=== PATIENT | female | born 1960 | race Caucasian/White ===

== ENCOUNTER 2017-08-02 16:00 | Outpatient (RCR) | payer BC, SELFPAY | END 2017-08-02 23:59 | LOC: PT.CARL 16:00 | PROVIDERS: Referring Provider Orthopaedic Surgery; Visit Provider Orthopaedic Surgery | DX: M75.100 Unspecified rotator cuff tear or rupture of unspecified shoulder, not specified as traumatic (principal) | CPT/HCPCS: 97010; 97014; 97033; 97110; 97140; 97162; G0283 ==

== ENCOUNTER 2017-08-26 16:30 | Outpatient (RCR) | payer BC, SELFPAY | END 2017-08-26 17:30 | disposition home or self-care (01) | LOC: PT 16:30 | PROVIDERS: Visit Provider Orthopaedic Surgery | DX: M75.00 Adhesive capsulitis of unspecified shoulder (principal) | CPT/HCPCS: 97010; 97014; 97016; 97033; 97110; 97140; 97164; G0283 ==

== ENCOUNTER 2018-08-07 08:30 | Outpatient (RCR) | payer BC, SELFPAY | END 2018-09-20 14:46 | disposition home or self-care (01) | LOC: PT.CARL 08:30 | PROVIDERS: Visit Provider Physician Assistant | DX: M46.1 Sacroiliitis, not elsewhere classified (principal) | CPT/HCPCS: 97010; 97012; 97014; 97033; 97110; 97140; 97163; G0283 ==

== ENCOUNTER 2019-01-04 08:30 | Outpatient (RCR) | payer BC, SELFPAY | END 2019-01-04 08:35 | disposition home or self-care (01) | LOC: PT 08:30 | PROVIDERS: Visit Provider Family Medicine Sports Medicine | DX: M70.60 Trochanteric bursitis, unspecified hip (principal) | CPT/HCPCS: 97010; 97014; 97033; 97035; 97110; 97140; 97163; G0283 ==

== ENCOUNTER 2019-09-13 07:00 | Outpatient (RCR) | payer BC, SELFPAY | END 2019-09-13 16:00 | disposition home or self-care (01) | LOC: PT.CARL 07:00 | PROVIDERS: Visit Provider Orthopaedic Surgery | DX: M75.100 Unspecified rotator cuff tear or rupture of unspecified shoulder, not specified as traumatic (principal) | CPT/HCPCS: 97010; 97014; 97110; 97140; 97163; 97164; G0283 ==

== ENCOUNTER 2020-03-10 07:00 | Outpatient (RCR) | payer BC, SELFPAY | END 2020-03-24 11:13 | disposition home or self-care (01) | LOC: PT.CARL 07:00 | PROVIDERS: Visit Provider Family Medicine | DX: M51.36 Other intervertebral disc degeneration, lumbar region (principal); M54.5 Low back pain; M54.10 Radiculopathy, site unspecified | CPT/HCPCS: 97110; 97140; 97163 ==

== ENCOUNTER → 2022-05-12 10:04 | Outpatient (CLI) | payer BC, SELFPAY ==
[2022-05-12 10:56] LABS: Basophils # 0.1 K/mm3 (0-0.2); Basophils % 0.7 % (0.1-2.0); Eosinophils # 0.6 K/mm3 (0.0-0.4); Eosinophils % 7.7 % (0.1-12.0); Hematocrit 42.2 % (37.0-47.0); Hemoglobin 12.6 g/dL (12.2-16.2); Lymphocytes # 3.2 K/mm3 (0.7-4.5); Lymphocytes % 38.2 % (10-50); Mean Corpuscular HGB Conc 29.8 g/dL (31.8-35.4); Mean Corpuscular Hemoglobin 27.7 pg (27.0-31.2); Mean Corpuscular Volume 93.2 fl (81-99); Mean Platelet Volume 7.2 fl (7.4-10.4); Monocytes # 0.5 K/mm3 (0.1-1.0); Monocytes % 6.5 % (1.7-9.3); Neutrophils # 3.9 K/mm3 (1.8-7.8); Neutrophils % 46.9 % (37.0-80.0); Platelet Count 424 K/mm3 (142-424); Red Blood Count 4.53 M/mm3 (4.20-5.40); Red Cell Distribution Width 13.5 % (11.5-17.5); White Blood Count 8.3 K/mm3 (4.8-10.8)
[2022-05-12 12:28] LABS: Anion Gap 14.6 mEq/L (5-15); Blood Urea Nitrogen 15 mg/dl (7-17); Calcium 9.3 mg/dl (8.4-10.2); Carbon Dioxide 31 mmol/L (22.0-30.0); Chloride 99 mmol/L (98-107); Estimated Glomerular Filt Rate 73 ml/min (>60); GFR (African American) 88 ML/MIN (>60); Glucose 98 mg/dl (74-100); Potassium 4.6 mmoL/L (3.5-5.1); Sodium 140 mmol/L (136-145)
== END ==
PROVIDERS: PCP Nurse Practitioner Family; Visit Provider Surgery
DX: L72.9 Follicular cyst of the skin and subcutaneous tissue, unspecified (principal)
CPT/HCPCS: 36415; 80048; 85025

== ENCOUNTER 2022-06-03 06:03 | Day surgery (SDC) | payer BC, SELFPAY ==
[2022-06-01 10:02] VITALS: BMI 32.3
[2022-06-03] VITALS (10 sets, daily range): BP systolic 99–145; BP diastolic 61–84; PULSE 71–88; RESP 15–18; TEMP 36.2–36.3; O2SAT 91–96
--- NOTE | 2022-06-03 08:00 | EXP.OP.NOTE ---
Date of procedure: 06/03/22 Pre-op Diagnosis:: Mid and right scalp cyst (x3) 2.5 cm cyst, 1.5 cm cyst, and a 1 cm cyst Post-op Diagnosis:: Same Procedure performed:: Excision of mid/right scalp cyst (x3) Scalp cysts range from 1 to 2.5 cm Surgeon:: Giovanny Hughes MD Anesthesia: LMA Estimated blood loss (mL): 15 Operative findings:: 1 cm right/mid apex scalp cyst 2.5 cm right crown scalp cyst 1.5 cm right posterior scalp cyst Operative note:: After informed consent was obtained the patient was taken to the operating room and placed in the supine position. General anesthesia with laryngeal mask airway was achieved. Her right scalp region was prepped and draped in a sterile fashion. After infiltration with local anesthetic an incision was made overlying the 1 cm right/mid apex scalp cyst. The underlying subcutaneous tissue was dissected with a combination of electrocautery and blunt dissection. The cystic lesion was removed and passed off for pathologic evaluation. The same procedure was completed for the 2.5 cm right crown scalp cyst and a 1.5 cm right posterior scalp cyst. The 2.5 cm right crown scalp cysts had capsular disruption and complete excision of all capsule could not be confirmed. Electrocautery was utilized to achieve hemostasis at all 3 sites. Pressure dressings were applied and the patient was transferred to recovery in stable condition. Condition: stable Disposition: PACU Specimens:: Scalp cysts (x3) Complications:: No immediate
--- NOTE | 2022-06-03 08:13 | P.PN_ITS ---
[facility] Medical History History of high platelet count Hyperlipidemia Hypertension Hypertension Overactive bladder Scalp cyst Skin cancer Sleep apnea Surgical History H/O tubal ligation H/O: hysterectomy History of colonoscopy History of lumbar fusion History of rotator cuff surgery History of surgical removal of ganglion cyst Family History Mother Family history of diabetes mellitus type II Mother Family history of hypertension Social History (Updated 06/03/22 @ 06:33 by Arina Sr RN) Smoking Status: Never smoker alcohol intake: never substance use type: denies use current occupational status: other Travel in the last 8 weeks: None do you feel safe at home: Yes victim of physical abuse: No victim of emotional abuse: No victim of sexual abuse: No would you like helpful sources: No [facility] Anesthesia Checklist Patient Identification Patient Identification: Arm Band and Family Structural Data Admitted From: Direct Admit Planned Operative Procedure/s: Excision neoplasm/lesion scalp X3 Consent for Planned Operative Procedure(s) Verified: Yes Verified Documents: Surgical Consent and History and Physical NPO Status Verified Time NPO: 00:00 Additional verifications Patient : No Anesthesia Reactions: No Hx Blood Transfusions: No Blood Transfusion Reaction: No Cephalosporin Allergy: No Previous Colonoscopy: Yes Airway Assessment C-Spine Mobility Assessed: Yes TMJ Mobility Assessed: Yes Dentition: Good Dentition Neurological Assessment Level of Consciousness: Awake, Alert, Appropriate and Follows Commands Hx Seizures: No Numbness or tingling in extremities: No Anesthesia Plan Anesthesia Risk discussed: Yes ASA Class: II Anesthesia Type: General
--- NOTE | 2022-06-03 08:15 | EXP.ANES.I ---
[facility] Anesthesia Record Part I Anesthesia Record I Intake, IV Amount: 100 Estimated blood loss (mL): 2 Urine output (mL): 0 Blood Pressure: 142/82 SaO2: 95 Pulse Rate: 88 Respiratory Rate: 18 Temperature: 97.1 F Patient is:: Drowsy and Stable Stable to PACU at:: 08:05
--- NOTE | 2022-06-03 08:51 | EXP.ANES.II ---
[facility] Anesthesia Record Part II Anesthesia Record Part II Discharge Time: 08:35 Destination: Surgical Day Care (OP Surgery) PACU nurse assessment reviewed?: Yes Patient Condition:: Good Anesthesia Complications:: None Swallowing reflex intact?: Yes Cyanosis?: No Blood Pressure: 145/84 Pulse Rate: 79 Temperature: 97.1 F Mental Status: Alert & Oriented Pain level:: 0 Nausea and/or vomitting:: None Intake, IV Amount: 0
== END 2022-06-03 09:06 | disposition home or self-care (01) ==
PROVIDERS: PCP Nurse Practitioner Family; Visit Provider Surgery
PROC: (CPT 11422; principal; 2022-06-03 07:30)
DX: L72.12 Trichodermal cyst (principal); Z79.899 Other long term (current) drug therapy
CPT/HCPCS: 11422 ×3; 88304; 96374; J2405

== ENCOUNTER 2023-08-16 08:46 | Outpatient (RCR) | payer BC, SELFPAY | END 2023-09-14 14:55 | disposition home or self-care (01) | LOC: PT 08:46 | PROVIDERS: PCP Nurse Practitioner Family; Visit Provider Nurse Practitioner Family | DX: M16.11 Unilateral primary osteoarthritis, right hip (principal) | CPT/HCPCS: 97110; 97140; 97163 ==

== ENCOUNTER 2024-03-15 08:00 | Outpatient (RCR) | payer BC, SELFPAY | END 2024-04-18 12:58 | disposition home or self-care (01) | LOC: PT 08:00 | PROVIDERS: Visit Provider Nurse Practitioner Family | DX: M54.50 Low back pain, unspecified (principal) | CPT/HCPCS: 97110; 97140; 97163 ==

== ENCOUNTER 2024-06-15 09:00 | Outpatient (RCR) | payer BC, SELFPAY | END 2024-07-17 14:32 | disposition home or self-care (01) | LOC: PT 09:00 | PROVIDERS: Visit Provider Nurse Practitioner Family | DX: M25.511 Pain in right shoulder (principal); S46.811A Strain of other muscles, fascia and tendons at shoulder and upper arm level, right arm, initial encounter | CPT/HCPCS: 20560; 97110; 97163; 97530 ==

== ENCOUNTER 2024-08-30 07:00 | Outpatient (RCR) | payer BC, SELFPAY | END 2024-08-30 23:59 | disposition home or self-care (01) | LOC: PT 07:00 | PROVIDERS: Visit Provider Orthopaedic Surgery | DX: Z98.890 Other specified postprocedural states (principal); M25.512 Pain in left shoulder | CPT/HCPCS: 97014; 97110; 97140; 97163; 97530; G0283 ==

== ENCOUNTER 2024-09-27 12:59 | Outpatient (RCR) | payer BC, SELFPAY | END 2024-09-27 23:59 | disposition home or self-care (01) | LOC: PT 12:59 | PROVIDERS: Visit Provider Orthopaedic Surgery | DX: Z98.890 Other specified postprocedural states (principal) | CPT/HCPCS: 97014; 97110; 97164; 97530; G0283 ==

== ENCOUNTER 2024-10-25 16:00 | Outpatient (RCR) | payer BC, SELFPAY | END 2024-10-25 23:59 | disposition home or self-care (01) | LOC: PT 16:00 | PROVIDERS: Visit Provider Orthopaedic Surgery | DX: Z98.890 Other specified postprocedural states (principal) | CPT/HCPCS: 97110; 97530 ==

== ENCOUNTER 2025-01-23 09:00 | Outpatient (RCR) | payer MEDICARE, BC, SELFPAY | END 2025-01-23 23:59 | disposition home or self-care (01) | LOC: PT.CARL 09:00 | PROVIDERS: PCP Nurse Practitioner Family; Visit Provider Neurological Surgery | DX: M54.16 Radiculopathy, lumbar region (principal) | CPT/HCPCS: 97014; 97110; 97140; 97162; G0283 ==

== ENCOUNTER 2025-01-30 08:53 | Outpatient (RCR) | payer MEDICARE, BC, SELFPAY | END 2025-01-30 23:59 | disposition home or self-care (01) | LOC: PT.CARL 08:53 | PROVIDERS: PCP Nurse Practitioner Family; Visit Provider Neurological Surgery | DX: M54.16 Radiculopathy, lumbar region (principal) | CPT/HCPCS: 97110; 97140 ==